=== PATIENT | female | born 1955 | race American Indian/Alaskan Native ===

== ENCOUNTER 2018-02-01 18:21 | Inpatient (IN) | payer OTHER ==
[2018-02-01] MEDS ORDERED: ASPIRIN PO ONE (19:19)
[2018-02-01 20:25] LABS: Basophils % (Auto) 0.7 % (0.0-1.8); Eosinophils # (Auto) 0.1 K/mm3 (0.0-0.4); Eosinophils % (Auto) 0.9 % (0.0-4.3); Hematocrit 38.9 % (30.3-42.9); Hemoglobin 12.7 gm/dl (10.1-14.3); Lymphocytes # (Auto) 1.3 K/mm3 (1.2-5.4); Lymphocytes % (Auto) 18.1 % (13.4-35.0); Mean Corpuscular HGB Conc 33 % (30-34); Mean Corpuscular Hemoglobin 30 pg (28-32); Mean Corpuscular Volume 92 fl (79-97); Monocytes # (Auto) 0.4 K/mm3 (0.0-0.8); Monocytes % (Auto) 4.8 % (0.0-7.3); Platelet Count 234 K/mm3 (140-440); Red Blood Count 4.21 M/mm3 (3.65-5.03); Red Cell Distribution Width 13.8 % (13.2-15.2)
[2018-02-01 20:36] LABS: BUN/Creatinine Ratio 18; Blood Urea Nitrogen 16 mg/dL (7-17); Hemolysis Index 60
[2018-02-01] MEDS ORDERED: NACL 0.9% 1000 ML 1,000 ML ONE (21:10)
[2018-02-01] MEDS ORDERED: NACL 0.9% 500 ML 500 ML IV ONE (21:34)
[2018-02-01 22:03] LABS: INR 1.08 (0.87-1.13)
[2018-02-01 22:04] LABS: Partial Thromboplastin Time 30.7 Sec. (24.2-36.6)
--- NOTE | 2018-02-01 22:29 | Emergency Department Report ---
ED Neuro Deficit HPI - General Chief Complaint: Extremity Injury, Upper Stated Complaint: NV/DIZZINESS Time Seen by Provider: 02/01/18 21:22 Source: patient, EMS (ems notes not available at time of chart dictation), RN notes reviewed Mode of arrival: Stretcher Limitations: Physical Limitation - History of Present Illness Initial Comments: This is a 62-year-old female, unknown to this provider previously, reports a past history of hypertension, and incarcerated hernia repair in 2017. She does not have a local primary care doctor. She presents to the ER with multiple complaints. Her first complaint is nontraumatic left-sided shoulder and scapular p Ain.started yesterday. It was achy in nature. It did not radiate anywhere. It had no exacerbating or relieving factors, is now currently resolved. She is very concerned about it because she reports that both of her parents had "massive myocardial infarctions " and reports that that was her only presenting symptom, along with dizziness. She also describes a sensation of unsteady gait which started at 11:00 today. It is constant, and associated with mild occipital headache, which is not sudden or thunderclap in nature, and did not reach maximal intensity within an hour. She has no chest pain, no shortness of breath and also feels like she is going to "pass out." She denies DVT, pulmonary embolus risk factors. She denies leg pain, leg swelling and oral contraceptives. She indicates that when she opens her eyes she feels like she is going to pass out. -: Sudden Location: ataxia Presenting Symptoms: Absent: Weak/Paralyzed One Side, Sudden, Severe Headache, Blurred/Loss of Vision, Facial Droop/Numbness, Unable to Speak Clearly, Altered Mental Status History of same: Yes Place: work Severity: moderate Quality: constant Improves With: rest Worsens With: other (movement) On Anticoagulants: No Context: gradual onset Associated Symptoms: headaches, loss of appetite, nausea/vomiting, weakness. denies: confusion, chest pain, cough, diaphoresis, fever/chills, vertigo, seizures, shortness of breath, syncope - Related Data Allergies/Adverse Reactions: Allergies Allergy/AdvReac Type Severity Reaction Status Date / Time Sulfa (Sulfonamide Allergy Hives Verified 02/01/18 19:19 Antibiotics) ED Review of Systems ROS: Stated complaint: NV/DIZZINESS Other details as noted in HPI Comment: All other systems reviewed and negative ED Past Medical Hx - Past Medical History Hx Hypertension: Yes - Surgical History Hx Appendectomy: Yes (1971) Additional Surgical History: , Incarciated hernia 2016 - Social History Smoking Status: Never Smoker Substance Use Type: None ED Neuro Physical Exam - General Limitations: Physical Limitation General appearance: alert, in no apparent distress Suspected Stroke: Yes - Head Head exam: Present: atraumatic, normocephalic - Eye Eye exam: Present: normal appearance, PERRL, EOMI, other (visual acuity intact to finger counting, color perception, reading at a close distance). Absent: nystagmus - ENT ENT exam: Present: normal exam, normal orophraynx, mucous membranes moist, normal external ear exam - Neck Neck exam: Present: normal inspection, full ROM. Absent: tenderness, meningismus - Respiratory Respiratory exam: Present: normal lung sounds bilaterally. Absent: respiratory distress - Cardiovascular Cardiovascular Exam: Present: normal rhythm, bradycardia, normal heart sounds. Absent: systolic murmur, diastolic murmur, rubs, gallop - GI/Abdominal GI/Abdominal exam: Present: soft, normal bowel sounds. Absent: distended, tenderness, guarding, rebound, rigid, pulsatile mass - Extremities Exam Extremities exam: Present: normal inspection, full ROM, normal capillary refill. Absent: pedal edema, joint swelling, calf tenderness - Back Exam Back exam: Present: normal inspection, full ROM. Absent: tenderness, CVA tenderness (R), paraspinal tenderness, vertebral tenderness - Neurological Exam Neurological exam: Present: alert, oriented X3, CN II-XII intact, other ( Extraocular movements intact. Tongue midline. No facial droop. Facial sensation intact to light touch in the V1, V2, V3 distribution bilaterally. 5 and 5 strength in 4 extremities.. Sensation is intact to light touch in 4 extremities.). Absent: motor sensory deficit - NIHSS Assessment Interval: Baseline 1a. Level of Consciousness: alert 1b. LOC Questions: answers correctly 1c. LOC Commands: performs tasks correctly 2. Best Gaze: normal 3. Visual: no visual loss 4. Facial Palsy: normal symmetrical movement 5b. Motor Arm Right: no drift 5a. Motor Arm Left: no drift 6a. Motor Leg Left: no drift 6b. Motor Leg Right: no drift 7. Limb Ataxia: absent 8. Sensory: normal 9. Best Language: no aphasia 10. Dysarthria: normal 11. Extinction/Inattention: no abnormality Total Score: 0 Stroke Severity: No Stroke Symptoms - Psychiatric Psychiatric exam: Present: anxious - Skin Skin exam: Present: warm, dry, intact, normal color. Absent: rash ED Course Vital Signs 02/01/18 02/01/18 02/01/18 19:08 20:01 20:23 Temperature 97.5 F L 97.8 F Pulse Rate 59 L 79 72 Respiratory 12 16 Rate Blood Pressure 146/84 136/70 Blood Pressure 136/70 [Right] O2 Sat by Pulse 98 98 98 Oximetry 02/01/18 02/02/18 02/02/18 22:00 00:04 01:01 Temperature Pulse Rate 83 Respiratory 16 13 Rate Blood Pressure 144/61 138/66 138/66 Blood Pressure [Right] O2 Sat by Pulse 98 97 97 Oximetry - Reevaluation(s) Reevaluation #1: 02/01/18 22:33 Differential diagnosis, including not limited to: Arrhythmia, structural cardiac disease, acute coronary syndrome, posterior circulation stroke, carotid dissection, peripheral vertigo, electrolyte derangement, symptomatic bradycardia Assessment and plan: 62-year-old female complaining of dizziness, nontraumatic left-sided shoulder pain, and unsteady gait. The patient presented more than 4.5 hours after symptom onset, and has an NIH score of 0. The patient is therefore not a TPA candidate. We will obtain a CT scan of the head, and CT angiogram of the head and neck. We will reassess. Plan to admit. Her symptoms will be treated as well. Reevaluation #2: 02/01/18 23:28 x-ray of the chest is negative for acute disease. CT scan interpretation is pending Reevaluation #3: 02/02/18 01:59 CT scan of the brain is negative. CT angiogram of head and neck does not demonstrate any significant disease. The case is presented to the Hospital physician, Dr. Carpenter, see accepted the patient the medical service. - Lab Data Result diagrams: 02/01/18 20:06 02/01/18 20:06 Lab Results 02/01/18 02/01/18 02/01/18 Range/Units 00:12 20:06 20:06 WBC 7.4 (4.5-11.0) K/mm3 RBC 4.21 (3.65-5.03) M/mm3 Hgb 12.7 (10.1-14.3) gm/dl Hct 38.9 (30.3-42.9) % MCV 92 (79-97) fl MCH 30 (28-32) pg MCHC 33 (30-34) % RDW 13.8 (13.2-15.2) % Plt Count 234 (140-440) K/mm3 Lymph % (Auto) 18.1 (13.4-35.0) % [place] % (Auto) 4.8 (0.0-7.3) % Eos % (Auto) 0.9 (0.0-4.3) % Baso % (Auto) 0.7 (0.0-1.8) % Lymph # 1.3 (1.2-5.4) K/mm3 [place] # 0.4 (0.0-0.8) K/mm3 Eos # 0.1 (0.0-0.4) K/mm3 Baso # 0.0 (0.0-0.1) K/mm3 Seg Neutrophils % 75.5 H (40.0-70.0) % Seg Neutrophils # 5.6 (1.8-7.7) K/mm3 PT (12.2-14.9) Sec. INR (0.87-1.13) APTT (24.2-36.6) Sec. Sodium 137 (137-145) mmol/L Potassium 4.2 (3.6-5.0) mmol/L Chloride 101.7 (98-107) mmol/L Carbon Dioxide 24 (22-30) mmol/L Anion Gap 16 mmol/L BUN 16 (7-17) mg/dL Creatinine 0.9 (0.7-1.2) mg/dL Estimated GFR > 60 ml/min BUN/Creatinine Ratio 18 % Glucose 115 H (65-100) mg/dL Calcium 9.0 (8.4-10.2) mg/dL Troponin T < 0.010 < 0.010 (0.00-0.029) ng/mL Urine Color (Yellow) Urine Turbidity (Clear) Urine pH (5.0-7.0) Ur Specific [place] (1.003-1.030) Urine Protein (Negative) mg/dL Urine Glucose (UA) (Negative) mg/dL Urine Ketones (Negative) mg/dL Urine Blood (Negative) Urine Nitrite (Negative) Urine Bilirubin (Negative) Urine Urobilinogen (<2.0) mg/dL Ur Leukocyte Esterase (Negative) Urine WBC (Auto) (0.0-6.0) /HPF Urine RBC (Auto) (0.0-6.0) /HPF U Epithel Cells (Auto) (0-13.0) /HPF Urine Bacteria (Auto) (Negative) /HPF Hyaline Casts /LPF Urine Mucus /HPF Urine Opiates Screen Urine Methadone Screen Ur Barbiturates Screen Ur Phencyclidine Scrn Ur Amphetamines Screen U Benzodiazepines Scrn Urine Cocaine Screen U Marijuana (THC) Screen Drugs of Abuse Note 02/01/18 02/01/18 02/01/18 Range/Units 21:42 23:00 23:00 WBC (4.5-11.0) K/mm3 RBC (3.65-5.03) M/mm3 Hgb (10.1-14.3) gm/dl Hct (30.3-42.9) % MCV (79-97) fl MCH (28-32) pg MCHC (30-34) % RDW (13.2-15.2) % Plt Count (140-440) K/mm3 Lymph % (Auto) (13.4-35.0) % [place] % (Auto) (0.0-7.3) % Eos % (Auto) (0.0-4.3) % Baso % (Auto) (0.0-1.8) % Lymph # (1.2-5.4) K/mm3 [place] # (0.0-0.8) K/mm3 Eos # (0.0-0.4) K/mm3 Baso # (0.0-0.1) K/mm3 Seg Neutrophils % (40.0-70.0) % Seg Neutrophils # (1.8-7.7) K/mm3 PT 14.6 (12.2-14.9) Sec. INR 1.08 (0.87-1.13) APTT 30.7 (24.2-36.6) Sec. Sodium (137-145) mmol/L Potassium (3.6-5.0) mmol/L Chloride (98-107) mmol/L Carbon Dioxide (22-30) mmol/L Anion Gap mmol/L BUN (7-17) mg/dL Creatinine (0.7-1.2) mg/dL Estimated GFR ml/min BUN/Creatinine Ratio % Glucose (65-100) mg/dL Calcium (8.4-10.2) mg/dL Troponin T (0.00-0.029) ng/mL Urine Color Yellow (Yellow) Urine Turbidity Clear (Clear) Urine pH 5.0 (5.0-7.0) Ur Specific [place] 1.015 (1.003-1.030) Urine Protein <15 mg/dl (Negative) mg/dL Urine Glucose (UA) Neg (Negative) mg/dL Urine Ketones Neg (Negative) mg/dL Urine Blood Neg (Negative) Urine Nitrite Neg (Negative) Urine Bilirubin Neg (Negative) Urine Urobilinogen < 2.0 (<2.0) mg/dL Ur Leukocyte Esterase Tr (Negative) Urine WBC (Auto) 6.0 (0.0-6.0) /HPF Urine RBC (Auto) 3.0 (0.0-6.0) /HPF U Epithel Cells (Auto) 3.0 (0-13.0) /HPF Urine Bacteria (Auto) 1+ (Negative) /HPF Hyaline Casts 1 /LPF Urine Mucus Few /HPF Urine Opiates Screen Presumptive negative Urine Methadone Screen Presumptive negative Ur Barbiturates Screen Presumptive negative Ur Phencyclidine Scrn Presumptive negative Ur Amphetamines Screen Presumptive negative U Benzodiazepines Scrn Presumptive negative Urine Cocaine Screen Presumptive negative U Marijuana (THC) Screen Presumptive negative Drugs of Abuse Note Disclamer - EKG Data -: EKG Interpreted by Nd EKG shows normal: sinus rhythm Rate: bradycardia When compared to previous EKG there are: previous EKG unavailable 02/01/18 22:35 Bradycardia, motion artifact, normal axis, abnormal EKG, not a STEMI. Sinus rhythm. - Radiology Data Radiology results: pending - Core Measures Measure Exclusions: not indicated - Thrombolytic Inclusion/Exclusion Thrombolytic Exclusion Criteria: Symptom Onset > 3 Hours Critical care attestation.: If time is entered above; I have spent that time in minutes in the direct care of this critically ill patient, excluding procedure time. ED Disposition Clinical Impression: Near syncope, History of unsteady gait Disposition: OP ADMIT IP TO THIS HOSP Is pt being admited?: Yes Does the pt Need Aspirin: Yes Condition: Good Referrals: PRIMARY CARE,MD [Primary Care Provider] - 3-5 Days
[2018-02-01 23:17] LABS: Bacteria,Urine 1+ /HPF (Negative); Bilirubin,Urine NEG (Negative); Blood,Urine NEG (Negative); Color,Urine Yellow (Yellow); Hyaline Casts,Urine 1 /LPF; Mucus,Urine FEW /HPF; Protein,Urine <15 mg/dL mg/dL (Negative); Urobilinogen,Urine < 2.0 mg/dL (<2.0)
--- NOTE | 2018-02-01 23:23 | XRay Report ---
FINAL REPORT EXAM: XR CHEST 1V AP HISTORY: back pain dizzy TECHNIQUE: Single AP view of the chest PRIORS: None. FINDINGS: Cardiac silhouette is enlarged.. No focal pulmonary infiltrate identified. No pleural fluid collection seen. The pulmonary vasculature is unremarkable. IMPRESSION: Cardiomegaly No acute pulmonary findings
[2018-02-01 23:24] LABS: Amphetamine Screen,Urine PRESUMPTIVE NEGATIVE; Benzodiazepines Screen,Urine PRESUMPTIVE NEGATIVE; Cannabinoid Screen,Urine PRESUMPTIVE NEGATIVE; Cocaine Screen,Urine PRESUMPTIVE NEGATIVE; Methadone Screen,Urine PRESUMPTIVE NEGATIVE; Opiate Screen,Urine PRESUMPTIVE NEGATIVE
--- NOTE | 2018-02-02 00:37 | Cat Scan Report ---
FINAL REPORT EXAM: CT ANGIO HEAD HISTORY: stroke sx DIZZINESS TECHNIQUE: Noncontrast head CT followed by CT angiography of the head with 100 cc of Omnipaque 350 contrast intravenously. Axial thin-section images with sagittal and coronal reconstructions. 3D renderings also obtained. PRIORS: None. FINDINGS: The bilateral internal carotid arteries appear normal and patent. The bilateral anterior and middle cerebral arteries and the [place] appear normal. The vertebrobasilar appears normal. The bilateral posterior cerebral arteries appear normal. No aneurysms or significant stenoses are demonstrated. IMPRESSION: Normal CT angiogram of the head
--- NOTE | 2018-02-02 00:39 | Cat Scan Report ---
FINAL REPORT EXAM: CT HEAD/BRAIN WO CON HISTORY: Stroke symptoms TECHNIQUE: CT was performed from the foramen magnum through the vertex in the axial plane without the use of intravenous contrast. PRIORS: None. FINDINGS: The [place]/white matter attenuation pattern is normal. There is no mass lesion or mass effect. There are no abnormal extra-axial fluid collections. There is no evidence of acute intracranial hemorrhage or infarct. The ventricles are of normal size and configuration. The skull and orbits are unremarkable. The visualized paranasal sinuses are clear. IMPRESSION: Normal CT of the head.
--- NOTE | 2018-02-02 01:27 | Cat Scan Report ---
FINAL REPORT EXAM: CT ANGIO NECK HISTORY: stroke sx COMPARISON: None available. TECHNIQUE: Contiguous axial images were obtained. Additional sagittal and coronal reformatted images were obtained. Administration of IV contrast given per institution protocol. Images submitted for interpretation. FINDINGS: Mild calcified plaque at the carotid bifurcations bilaterally. No significant associated stenosis by NASCET criteria. Otherwise, extracranial portions of the common carotid, internal carotid, and vertebral arteries are patent. Left vertebral artery is dominant. Upper airway is patent. True vocal cords are symmetric. Salivary glands and thyroid gland are grossly unremarkable. Mild atelectasis at the lung apices. Moderate focal degenerative changes at the C5-C6 level. Small retention cysts or polyps at the floors of the maxillary sinuses. IMPRESSION: Mild calcified plaque at the carotid bifurcations bilaterally. No associated stenosis by NASCET criteria. Otherwise, negative CTA of the neck. The
[2018-02-02] MEDS ORDERED: ASPIRIN ONE (01:56)
--- NOTE | 2018-02-02 02:42 | History and Physical Report ---
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 She stated that this started after she had a bout of sepsis in June. Dizzinesss is provoked by loud noises and bright light and usually lasts for 5 minutes. Also complain of arms and legs getting weaker and left shoulder pain, achy, no radiation Review of systems Constitutional: no weight loss, chills Ears, eyes, nose, mouth and throat: no nasal congestion, no nasal discharge, no sinus pressure, no vision change, no red eye. Neck: No neck pain or rigidity. Cardiovascular: no chest pain, palpitation Respiratory: No cough, shortness of breath Gastrointestinal: no abdominal pain, hematochezia Genitourinary : no dysuria, frequency , no hematuria Musculoskeletal: no joint swelling or muscle ache Integumentary: no rash, no pruritis Neurological: no parathesias, no numbness, no focal weakness Endocrine: no cold or heat intolerance, no polyuria or polydipsia Hematologic/Lymphatic: no easy bruising, no easy bleeding, no gland swelling Allergic/Immunologic: no urticaria, no angioedema. PAST MEDICAL HISTORY: hypertension PAST SURGICAL HISTORY: c/section, hernia repair, appendectomy SOCIAL HISTORY: Denies tobacco, alcohol, drugs FAMILY HISTORY: Hypertension, diabetes Medications and Allergies Allergies Allergy/AdvReac Type Severity Reaction Status Date / Time Sulfa (Sulfonamide Allergy Hives Verified 02/01/18 19:19 Antibiotics) Home Medications Medication Instructions Recorded Confirmed Last Taken Type Hydrochlorothiazide [HCTZ] 25 mg PO QDAY 02/02/18 02/02/18 Unknown History Lisinopril [Zestril TAB] 10 mg PO QDAY 02/02/18 02/02/18 Unknown History Exam - Physical Exam Narrative exam: Gen. appearance: Patient lying in bed, no apparent distress HEENT: Normocephalic, atraumatic, pupils equally round and reactive to light, extraocular movement intact, and no sclericterus,. No JVD or thyromegaly or nodule,neck supple, no carotid bruit ,mucous membranes dry, no exudate or erythema Heart: S1, S2, regular rate and rhythm Lungs: Clears bilaterally, breathing comfortable Abdomen: Positive bowel sounds, nontender, nondistended, no organomegaly Extremity:no edema cyanosis, clubbing Neuro: Oriented 3, cranial nerves II-12 intact, speech is fluent, motor poor effort - Constitutional Vitals: Temp Pulse Resp BP Pulse Ox 97.8 F 83 13 138/66 97 02/01/18 20:23 02/02/18 01:01 02/02/18 01:01 02/02/18 01:01 02/02/18 01:01 Results - Labs CBC & Chem 7: 02/01/18 20:06 02/01/18 20:06 Labs: Abnormal lab results 02/01/18 02/01/18 Range/Units 20:06 20:06 Seg Neutrophils % 75.5 H (40.0-70.0) % Glucose 115 H (65-100) mg/dL Assessment and Plan Assessment Dizziness Hypertension Plam Admit to medicine Start meclizine, consult neurology check cardiac nzymes DVT prophalaxis
[2018-02-02] MEDS ORDERED: ZOFRAN IV PRN (03:13)
[2018-02-02] MEDS ORDERED: TYLENOL PO PRN (03:13)
[2018-02-02] MEDS ORDERED: SODIUM CHLORIDE FLUSH SYRINGE 10 ML IV PRN (03:13)
[2018-02-02] MEDS ORDERED: ANTIVERT PO PRN (04:36)
[2018-02-02] MEDS ORDERED: NACL 0.9% 1000 ML 1,000 ML IV SCH (09:00)
[2018-02-02 09:01] LABS: Creatine Kinase MB 1.5 ng/mL (0.0-4.0)
[2018-02-02] MEDS ORDERED: ZESTRIL PO SCH ×2 (10:00→22:00)
[2018-02-02] MEDS ORDERED: LOVENOX SUB-Q SCH (10:00)
[2018-02-02] MEDS: HCTZ PO SCH (10:44)
[2018-02-02] MEDS: ASPIRIN PO SCH (10:44)
[2018-02-02] MEDS: SODIUM CHLORIDE FLUSH SYRINGE 10 ML IV SCH ×2 (10:44→22:00)
[2018-02-02] MEDS: LOVENOX SUB-Q SCH (10:44)
--- NOTE | 2018-02-02 12:24 | Consultation ---
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 It can be triggered even daily by exposure to visual stimuli such as scrolling pages on computer or smart phone, moving images on her television, loud noises, bright lights etc. She cannot drive on a highway due to too much visual stimulation. She had a CT scan she says back in February that was negative but has never seen an ENT specialist or had an MRI. She states when she gets lightheaded she tends to fall to the left. She does not have vertigo. Symptoms began about a month after hospitalization for sepsis from eating contaminated soup she thinks, contaminated by a coworker. She had severe pain in the legs in 2014 but after antibiotics for the sepsis in November 2016, leg pain resolved. Dizziness subsides if she gets rid of the triggers. She has noted that it helps to receive IV hydration and she tries to drink 6 bottles of water per day at home. Vision is out of focus though not exactly blurred. Yesterday she began having dizziness at noon and it lasted longer than usual to 3 PM and when she sat up she vomited so she ended up being brought to the hospital. She says her pulse now is low at 56 whereas it usually is 96-104. Usually her blood pressures 130/84 and is lower here. Given some IV fluids previously ordered. At some dull ache in the left shoulder joint starting the day before the other symptoms. He had weakness of the arms and legs ever since November or January of last year without shortness of breath but with "no energy". Dizziness has been more frequent since approximately August of this year. She gets a dull frontal discomfort with some photophobia but doesn't feel it is enough to call it a headache and usually without nausea. CT scan shows mild to moderate cerebral atrophy. 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 denies: smoking, alcohol abuse, prescription drug abuse, IV drug use (never illicit drugs) Medications and Allergies Allergies Allergy/AdvReac Type Severity Reaction Status Date / Time Sulfa (Sulfonamide Allergy Hives Verified 02/01/18 19:19 Antibiotics) Home Medications Medication Instructions Recorded Confirmed Last Taken Type Hydrochlorothiazide [HCTZ] 25 mg PO QDAY 02/02/18 02/02/18 Unknown History Lisinopril [Zestril TAB] 10 mg PO QDAY 02/02/18 02/02/18 Unknown History Active Meds: Active Medications Acetaminophen (Tylenol) 650 mg PO Q4H PRN PRN Reason: Pain MILD(1-3)/Fever >100.5/HERNÁNDEZ Last Admin: 02/02/18 07:50 Dose: 650 mg Aspirin (Aspirin) 325 mg PO QDAY [facility] Last Admin: 02/02/18 10:44 Dose: 325 mg Enoxaparin Sodium (Lovenox) 40 mg SUB-Q QDAY@1000 [facility] Last Admin: 02/02/18 10:44 Dose: 40 mg Hydrochlorothiazide (Hctz) 25 mg PO QDAY [facility] Last Admin: 02/02/18 10:44 Dose: Not Given Sodium Chloride (Nacl 0.9% 1000 Ml) 1,000 mls @ 125 mls/hr IV DIRECT SHANTANU Stop: 02/02/18 16:59 Last Admin: 02/02/18 09:07 Dose: 125 mls/hr Lisinopril (Zestril) 10 mg PO QHS SHANTANU Meclizine HCl (Antivert) 25 mg PO Q6H PRN PRN Reason: Vertigo Ondansetron HCl (Zofran) 4 mg IV Q8H PRN PRN Reason: Nausea And Vomiting Sodium Chloride (Sodium Chloride Flush Syringe 10 Ml) 10 ml IV BID [facility] Last Admin: 02/02/18 10:44 Dose: 10 ml Sodium Chloride (Sodium Chloride Flush Syringe 10 Ml) 10 ml IV PRN PRN PRN Reason: LINE FLUSH Review of Systems All systems: negative (dull frontal discomfort less than a headache, without nausea but with some photophobia. No chest pain. Not aware of any snoring. Not sleepy during the day or when driving, gets 6-7 hours sleep and feels rested. 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 HEENT: atraumatic, normocephalic; no bruits, 2+ Geo without soreness or induration or enlargement, sclerae nonicteric. Oropharynx pink and moist. Neck: supple, no bruits. Heart: no murmur or extra sounds. Extremities: no clubbing or cyanosis but trace edema on the left. 1+ left posterior tibial and 2+ right dorsalis pedis pulses. Neurologic Exam: Mental Status: Awake, alert, oriented to tense instead of 14 and thinks it is Tuesday but knows the year, speech is clear, names pen and point of pen, and abstracts well. Names President but calls the Metal Painter Penson instead of Matteson, serial 7's intact, no right-left confusion, gets 1 of 3 objects at 3 minutes, spells WORLD backwards correctly. Cranial Nerves: gatica full, no papilledema, SVPs present, PERRLA but small pupils, EOMs full without nystagmus or diplopia, facial sensation intact to pinprick and light touch, no facial weakness, Sweeney is midline, palate rises symmetrically to phonation and gags are positive, shoulder shrug is 5 X 2, tongue protrudes midline. Cerebellar: finger to nose is slightly dysmetric on the left without tremor, heel to humphreys is normal bilaterally. Sensory: intact to light touch, pinprick, and vibrations. Double simultaneous stimulation is intact. Motor Exam Upper Extremities: no drift or pronation, Gerardo intact. Bleach Mixer are 5 X 2, tone is normal. No atrophy or fasciculations are noted visually. Motor Exam Lower Extremities: Moderate left leg lag, iliopsoas is 5 left and 4 right without pain, quadriceps show give way at 4 laterally without pain, anterior tibials are 5, gastrocnemius are 5 left and 4+ right without pain. Gerardo intact. Tone is normal. No atrophy or fasciculations are noted visually. Reflexes: Palmomental, snout and jaw jerk are negative. Triceps are 0 calming trace bilaterally with reinforcement, biceps are trace to 1 and brachioradialis are trace bilaterally. Vonda's is negative bilaterally. Knee jerks and ankle jerks are 0 bilaterally even with reinforcement and without clonus. Toes are downgoing bilaterally to Babinski testing. - Assessment Assessment Interval: Baseline - Level of Consciousness 1a. Level of Consciousness: alert - LOC Questions 1b. LOC Questions: answers correctly - LOC Command 1c. LOC Commands: performs tasks correctly - Best Gaze 2. Best Gaze: normal - Visual 3. Visual: no visual loss - Facial Palsy 4. Facial Palsy: normal symmetrical movement - Motor Arm 5b. Motor Arm Right: no drift - Motor Leg 6a. Motor Leg Left: no drift - Limb Ataxia 7. Limb Ataxia: absent - Sensory 8. Sensory: normal - Best Language 9. Best Language: no aphasia - Dysarthria 10. Dysarthria: normal - Extinction and Inattention 11. Extinction/Inattention: no abnormality Results - Laboratory Findings CBC and BMP: 02/01/18 20:06 02/01/18 20:06 Abnormal Lab Findings: Abnormal Labs 02/01/18 02/01/18 20:06 20:06 Seg Neutrophils % 75.5 H Glucose 115 H Assessment and Plan Impression: 1. Dizziness 2. Memory loss 3. Muscle weakness Plan: 1. Echocardiogram with bubbles, to see if cardiomyopathy. 2. MRI brain noncontrast. 3. Muscle enzymes, myasthenia panel, MuSK antibody, striated muscle antibody. 4. IV hydration then perhaps will be able to check orthostatics (unable to managed care coordinator ER when attempted). 5. Memory labs. 6. Move lisinopril to bedtime or her time for sleep, to avoid orthostasis from taking the HCTZ and lisinopril at the same time (explained to her). 7. Consider IVIG for possible CIDP but presentation does not fit well. 45 minutes spent including extensive muscle testing. Thank you for an interesting consultation on this pleasant early 60s lady.
--- NOTE | 2018-02-02 13:05 | Magnetic Resonance Report ---
MRI BRAIN WITHOUT CONTRAST: 02/02/18 03:13:00 CLINICAL: Dizziness and weakness of four limbs. TECHNIQUE: Axial diffusion, T1, T2, gradient echo T2*, coronal and axial FLAIR, and sagittal T1 sequences on a 1.5 Rachel magnet. FINDINGS: The ventricles and sulci are slightly large for age. No restricted diffusion. Mild bilateral multifocal white matter hyperintensities on FLAIR and T2. No mass or mass effect. No hemorrhage, edema or extra-axial collection. Normal pituitary and optic chiasm. The brainstem and cerebellum are normal. Intact vascular flow voids. Mild bilateral ethmoid sinusitis. The rest of the sinuses are clear. The orbits, and soft tissues are normal. Normal calvarium and skull base. IMPRESSION: 1. No evidence of acute/subacute infarct or hemorrhage. 2. Mild global cortical atrophy. 3. Mild bilateral chronic white matter microangiopathy. 4. Mild ethmoid sinusitis.
[2018-02-03 06:26] LABS: Basophils % (Auto) 0.3 % (0.0-1.8); Eosinophils # (Auto) 0.1 K/mm3 (0.0-0.4); Hematocrit 35.5 % (30.3-42.9); Hemoglobin 11.6 gm/dl (10.1-14.3); Lymphocytes # (Auto) 2.2 K/mm3 (1.2-5.4); Lymphocytes % (Auto) 35.2 % (13.4-35.0); Mean Corpuscular HGB Conc 33 % (30-34); Mean Corpuscular Hemoglobin 30 pg (28-32); Mean Corpuscular Volume 92 fl (79-97); Monocytes # (Auto) 0.6 K/mm3 (0.0-0.8); Monocytes % (Auto) 9.1 % (0.0-7.3); Platelet Count 215 K/mm3 (140-440); Red Blood Count 3.87 M/mm3 (3.65-5.03); Red Cell Distribution Width 13.8 % (13.2-15.2)
[2018-02-03 06:53] LABS: BUN/Creatinine Ratio 16; Blood Urea Nitrogen 18 mg/dL (7-17); Calcium 8.5 mg/dL (8.4-10.2); Hemolysis Index 2
--- NOTE | 2018-02-03 12:07 | Progress Note ---
Assessment and Plan Assessment and plan: --Dizziness; fall precautions Physical therapy and occupational therapy, review medications Meclizine as needed If no improvement, patient may need to see ENT as outpatient Workup; CT head; normal study CTA head; normal CTA neck; mild calcified plaque at the carotid bifurcation bilaterally MRI brain; no evidence of acute subacute infarct or hemorrhage, mild to moderate sinusitis Echocardiogram; left ventricular ejection fraction 55-60%, mild concentric LVH --Hypertension; continue current antihypertensives Mild orthostatic changes, and his lisinopril and add metoprolol Closely monitor ----Mild ethmoidal sinusitis on CT head; Add amoxicillin, supportive care --DVT prophylaxis; Lovenox --Morbid obesity; BMI 49.4 Counseling, dietary modification and exercise as tolerated and weight reduction When medically stable Consults and recommendations noted and appreciated Physical therapy occupational therapy, possible home health home PT at discharge Plan of care is reviewed with the patient and her nurse History Interval history: Patient seen and examined medical records reviewed Admitted with dizziness, neuro workup is in progress No new episodes of dizziness or near syncope Alert awake oriented 3 vital signs reviewed Hospitalist Physical - Constitutional Vitals: Temp Pulse Resp BP Pulse Ox 98.2 F 83 18 133/68 96 02/03/18 07:29 02/03/18 07:29 02/03/18 07:29 02/03/18 07:29 02/03/18 07:29 General appearance: Present: no acute distress, well-nourished - EENT Eyes: Present: PERRL, EOM intact - Neck Neck: Present: supple, normal ROM - Respiratory Respiratory effort: normal Respiratory: bilateral: diminished, negative: rales, rhonchi, wheezing - Cardiovascular Rhythm: regular Heart Sounds: Present: S1 & S2 - Extremities Extremities: no ischemia, No edema - Abdominal General gastrointestinal: soft, non-tender, non-distended, normal bowel sounds - Integumentary Integumentary: Present: clear, warm - Psychiatric Psychiatric: appropriate mood/affect, cooperative - Neurologic Neurologic: CNII-XII intact, moves all extremities Results - Labs CBC & Chem 7: 02/03/18 05:34 02/03/18 05:34 Labs: Laboratory Last Values WBC 6.1 K/mm3 (4.5-11.0) 02/03/18 05:34 RBC 3.87 M/mm3 (3.65-5.03) 02/03/18 05:34 Hgb 11.6 gm/dl (10.1-14.3) 02/03/18 05:34 Hct 35.5 % (30.3-42.9) 02/03/18 05:34 MCV 92 fl (79-97) 02/03/18 05:34 MCH 30 pg (28-32) 02/03/18 05:34 MCHC 33 % (30-34) 02/03/18 05:34 RDW 13.8 % (13.2-15.2) 02/03/18 05:34 Plt Count 215 K/mm3 (140-440) 02/03/18 05:34 Lymph % (Auto) 35.2 % (13.4-35.0) H 02/03/18 05:34 [place] % (Auto) 9.1 % (0.0-7.3) H 02/03/18 05:34 Eos % (Auto) 2.0 % (0.0-4.3) 02/03/18 05:34 Baso % (Auto) 0.3 % (0.0-1.8) 02/03/18 05:34 Lymph # 2.2 K/mm3 (1.2-5.4) 02/03/18 05:34 [place] # 0.6 K/mm3 (0.0-0.8) 02/03/18 05:34 Eos # 0.1 K/mm3 (0.0-0.4) 02/03/18 05:34 Baso # 0.0 K/mm3 (0.0-0.1) 02/03/18 05:34 Seg Neutrophils % 53.4 % (40.0-70.0) 02/03/18 05:34 Seg Neutrophils # 3.3 K/mm3 (1.8-7.7) 02/03/18 05:34 PT 14.6 Sec. (12.2-14.9) 02/01/18 21:42 INR 1.08 (0.87-1.13) 02/01/18 21:42 APTT 30.7 Sec. (24.2-36.6) 02/01/18 21:42 Sodium 142 mmol/L (137-145) 02/03/18 05:34 Potassium 4.0 mmol/L (3.6-5.0) 02/03/18 05:34 Chloride 105.0 mmol/L (98-107) 02/03/18 05:34 Carbon Dioxide 24 mmol/L (22-30) 02/03/18 05:34 Anion Gap 17 mmol/L 02/03/18 05:34 BUN 18 mg/dL (7-17) H 02/03/18 05:34 Creatinine 1.1 mg/dL (0.7-1.2) 02/03/18 05:34 Estimated GFR > 60 ml/min 02/03/18 05:34 BUN/Creatinine Ratio 16 % 02/03/18 05:34 Glucose 93 mg/dL (65-100) 02/03/18 05:34 Lactic Acid 0.60 mmol/L (0.7-2.0) L 02/02/18 14:23 Calcium 8.5 mg/dL (8.4-10.2) 02/03/18 05:34 Total Creatine Kinase 103 units/L (30-135) 02/02/18 14:23 CK-MB (CK-2) 1.5 ng/mL (0.0-4.0) 02/02/18 08:30 CK-MB (CK-2) Rel Index 1.5 (0-4) 02/02/18 08:30 Troponin T < 0.010 ng/mL (0.00-0.029) 02/02/18 08:30 Vitamin B12 1174 pg/mL (211-911) H 02/02/18 14:23 Folate 11.33 ng/mL (7.3-26.0) 02/02/18 14:23 TSH 0.610 mlU/mL (0.270-4.200) 02/02/18 14:23 Free T4 1.08 ng/dL (0.76-1.46) 02/02/18 14:23 Urine Color Yellow (Yellow) 02/01/18 23:00 Urine Turbidity Clear (Clear) 02/01/18 23:00 Urine pH 5.0 (5.0-7.0) 02/01/18 23:00 Ur Specific [place] 1.015 (1.003-1.030) 02/01/18 23:00 Urine Protein <15 mg/dl mg/dL (Negative) 02/01/18 23:00 Urine Glucose (UA) Neg mg/dL (Negative) 02/01/18 23:00 Urine Ketones Neg mg/dL (Negative) 02/01/18 23:00 Urine Blood Neg (Negative) 02/01/18 23:00 Urine Nitrite Neg (Negative) 02/01/18 23:00 Urine Bilirubin Neg (Negative) 02/01/18 23:00 Urine Urobilinogen < 2.0 mg/dL (<2.0) 02/01/18 23:00 Ur Leukocyte Esterase Tr (Negative) 02/01/18 23:00 Urine WBC (Auto) 6.0 /HPF (0.0-6.0) 02/01/18 23:00 Urine RBC (Auto) 3.0 /HPF (0.0-6.0) 02/01/18 23:00 U Epithel Cells (Auto) 3.0 /HPF (0-13.0) 02/01/18 23:00 Urine Bacteria (Auto) 1+ /HPF (Negative) 02/01/18 23:00 Hyaline Casts 1 /LPF 02/01/18 23:00 Urine Mucus Few /HPF 02/01/18 23:00 Urine Opiates Screen Presumptive negative 02/01/18 23:00 Urine Methadone Screen Presumptive negative 02/01/18 23:00 Ur Barbiturates Screen Presumptive negative 02/01/18 23:00 Ur Phencyclidine Scrn Presumptive negative 02/01/18 23:00 Ur Amphetamines Screen Presumptive negative 02/01/18 23:00 U Benzodiazepines Scrn Presumptive negative 02/01/18 23:00 Urine Cocaine Screen Presumptive negative 02/01/18 23:00 U Marijuana (THC) Screen Presumptive negative 02/01/18 23:00 Drugs of Abuse Note Disclamer 02/01/18 23:00
[2018-02-03] MEDS: HCTZ PO SCH (15:31)
[2018-02-03] MEDS: LOVENOX SUB-Q SCH (15:31)
[2018-02-03] MEDS: SODIUM CHLORIDE FLUSH SYRINGE 10 ML IV SCH ×2 (15:31→21:43)
[2018-02-03] MEDS: ASPIRIN PO SCH (15:31)
--- NOTE | 2018-02-03 17:33 | Event Note ---
Date: 02/03/18 Orthostatics show elevation of pulse >20 points standing vs sitting or standing but BP went up standing. May need beta sherwin. Echo with bubbles shows minor changes but no embolic source and no cardiomyopathy. Ordered fasting lipids. Dizziness likely from swings in BP and orthostatic pulse changes. Will sign off , call us if further questions.
[2018-02-03] MEDS: AUGMENTIN 875 MG PO SCH (21:42)
[2018-02-03] MEDS: LOPRESSOR PO SCH (21:42)
[2018-02-04 09:43] LABS: Chol/HDL Ratio 2.91 %
[2018-02-04] MEDS: HCTZ PO SCH (10:39)
[2018-02-04] MEDS: AUGMENTIN 875 MG PO SCH (10:40)
[2018-02-04] MEDS: ASPIRIN PO SCH (10:40)
[2018-02-04] MEDS: LOVENOX SUB-Q SCH (10:40)
[2018-02-04] MEDS: LOPRESSOR PO SCH (10:41)
[2018-02-04] MEDS: SODIUM CHLORIDE FLUSH SYRINGE 10 ML IV SCH (10:50)
--- NOTE | 2018-02-04 13:25 | Discharge Summary ---
Providers - Providers Date of Admission: 02/02/18 03:13 Date of discharge: 02/04/18 Attending physician: CHARLETTE HARDWICK 02/02/18 03:13 Consult to Physician [CONS] Routine Comment: called over to [employer] voicemail and placed on list Consulting Provider: LUISITO SMALLWOOD Physician Instructions: Reason For Exam: dizziness Primary care physician: TRAINING PROJECT MANAGER Hospitalization Reason for admission: dizziness/vertigo Condition: Good Pertinent studies: Workup; CT head; normal study CTA head; normal CTA neck; mild calcified plaque at the carotid bifurcation bilaterally MRI brain; no evidence of acute subacute infarct or hemorrhage, mild to moderate sinusitis Echocardiogram; left ventricular ejection fraction 55-60%, mild concentric LVH Hospital course: Very pleasant 62-year-old morbidly obese female patient with significant history of hypertension was admitted through emergency room with dizziness patient was admitted to the hospital had extensive evaluation as mentioned above, patient's orthostatics were checked, blood pressure medications adjusted, Patient was evaluated in neurology, medications were optimized, recommendations followed, Patient also had ethamoid sinusitis, started on antibiotics Received physical therapy occupational therapy, Still had intermittent vertigo, which was relieved by meclizine Today patient is comfortable in no new complaints Vital signs stable, Ambulatory and tolerating oral nutrition Patient strongly advised to follow neurology, ENT for further evaluation and management of dizziness/vertigo Strictly advised not to drive or operate heavy machinery until cleared by primary care physician, verbalized understanding Patient is hemodynamically and clinically stable for discharge Discharge diagnosis; --Dizziness/vertigo; fall precautions --Hypertension; --Mild ethmoidal sinusitis on CT head; --Morbid obesity; BMI 49.4; and swelling weight reduction Disposition: DC-01 TO HOME OR SELFCARE Time spent for discharge: 33 min Core Measure Documentation - Palliative Care Palliative Care/ Comfort Measures: Not Applicable - Core Measures Any of the following diagnoses?: none Exam - Constitutional Vitals: Temp Pulse Resp BP Pulse Ox 97.4 F L 82 18 120/70 98 02/04/18 07:50 02/04/18 10:41 02/04/18 07:50 02/04/18 10:41 02/04/18 10:00 General appearance: Present: no acute distress, obese - EENT Eyes: Present: PERRL, EOM intact - Neck Neck: Present: supple, normal ROM - Respiratory Respiratory effort: normal Respiratory: negative: rales, rhonchi, wheezing - Cardiovascular Rhythm: regular Heart Sounds: Present: S1 & S2 - Extremities Extremities: no ischemia, No edema Peripheral Pulses: within normal limits - Abdominal General gastrointestinal: Present: soft, non-tender, non-distended, normal bowel sounds - Integumentary Integumentary: Present: clear, warm - Musculoskeletal Musculoskeletal: strength equal bilaterally - Psychiatric Psychiatric: appropriate mood/affect, cooperative - Neurologic Neurologic: CNII-XII intact, moves all extremities Plan Activity: advance as tolerated, no driving until cleared by PCP, fall precautions Diet: low salt Additional Instructions: Advice exercise as tolerated and weight reduction. Fall precautions Follow up with: PRIMARY CAREMD [Primary Care Provider] - 3-5 Days BILL CHACON MD [Staff Physician] - 7 Days DEBO CORONADO MD [Staff Physician] - 7 Days Prescriptions: Amoxicillin/K Clav Tab [Augmentin 875MG TAB] 1 each PO Q12HR #14 tablet Meclizine [Antivert] 25 mg PO Q8H PRN #30 tablet PRN Reason: Vertigo Metoprolol [Lopressor TAB] 12.5 mg PO BID #60 tablet
[2018-02-04 16:49] VITALS: BP 132/84
== END 2018-02-04 16:00 | disposition home or self-care (01) | DRG 149 ==
LOC: EDBD → ED 18:21 → 4A 02-02 03:13
PROVIDERS: ADMIT Internal Medicine; ATTEND Internal Medicine
DX: R42 Dizziness and giddiness (principal); Z68.42 Body mass index [BMI] 45.0-49.9, adult; R55 Syncope and collapse; I10 Essential (primary) hypertension; R41.3 Other amnesia; M62.81 Muscle weakness (generalized); J32.2 Chronic ethmoidal sinusitis; E66.01 Morbid (severe) obesity due to excess calories; Z88.2 Allergy status to sulfonamides; Z90.49 Acquired absence of other specified parts of digestive tract; Z83.3 Family history of diabetes mellitus; Z82.49 Family history of ischemic heart disease and other diseases of the circulatory system
CPT/HCPCS: 36415; 70450; 70496; 70498; 70551; 71045; 80048; 80061; 80307; 81001; 82085; 82140; 82550; 82553; 82607; 82747; 83519; 84425; 84439; 84443; 84484; 85025; 85610; 85730; 86256; 93005; 93010; 93306; J1650; J7030; Q9967

== ENCOUNTER 2018-05-22 18:44 | Emergency (ER) | payer SELFPAY ==
[2018-05-22] MEDS ORDERED: ASPIRIN PO ONE (19:30)
[2018-05-22 20:10] LABS: Basophils % (Auto) 0.5 % (0.0-1.8); Eosinophils # (Auto) 0.1 K/mm3 (0.0-0.4); Eosinophils % (Auto) 1.8 % (0.0-4.3); Hemoglobin 12.8 gm/dl (10.1-14.3); Lymphocytes # (Auto) 1.2 K/mm3 (1.2-5.4); Lymphocytes % (Auto) 22.5 % (13.4-35.0); Mean Corpuscular HGB Conc 34 % (30-34); Mean Corpuscular Hemoglobin 31 pg (28-32); Mean Corpuscular Volume 92 fl (79-97); Monocytes # (Auto) 0.4 K/mm3 (0.0-0.8); Monocytes % (Auto) 7.1 % (0.0-7.3); Platelet Count 222 K/mm3 (140-440); Red Blood Count 4.13 M/mm3 (3.65-5.03); Red Cell Distribution Width 13.8 % (13.2-15.2)
[2018-05-22 20:47] LABS: BUN/Creatinine Ratio 11; Blood Urea Nitrogen 10 mg/dL (7-17); Calcium 8.6 mg/dL (8.4-10.2); Hemolysis Index 21
--- NOTE | 2018-05-22 21:03 | Emergency Department Report ---
ED Dizziness HPI - General Chief Complaint: Dizziness Stated Complaint: SYNCOPY Time Seen by Provider: 05/22/18 20:32 Source: patient, EMS Mode of arrival: Stretcher Limitations: No Limitations - History of Present Illness Initial Comments: Patient is 63 years old female with a history of hypertension. Patient presented to the ER complaining of vertigo started this morning. Patient stated that she had history of vertigo and dizziness. Patient was admitted here in January and she had a full workup and all came back negative. Patient stated that her symptoms is similar to what she used to have except for the sweating that happened with it. Patient denied any chest pain or shortness of breath. She also denied any nausea or vomiting. Patient denied any weakness, numbness or tingling sensation. No bowel or bladder incontinence. MD Complaint: dizziness Timing: sudden onset Description: sense of movement, "room spinning" History of Same: Yes History of Trauma: No Severity: moderate Improves With: remaining still Worsens With: position Associated Symptoms: denies other symptoms - Related Data Home Medications Medication Instructions Recorded Confirmed Last Taken hydroCHLOROthiazide [HCTZ] 25 mg PO QDAY 02/02/18 02/02/18 Unknown Previous Rx's Medication Instructions Recorded Last Taken Type Amoxicillin/K Clav Tab [Augmentin 1 each PO Q12HR #14 tablet 02/04/18 Unknown Rx 875MG TAB] Meclizine [Antivert] 25 mg PO Q8H PRN #30 tablet 02/04/18 Unknown Rx Metoprolol [Lopressor TAB] 12.5 mg PO BID #60 tablet 02/04/18 Unknown Rx Allergies Allergy/AdvReac Type Severity Reaction Status Date / Time Sulfa (Sulfonamide Allergy Hives Verified 02/01/18 19:19 Antibiotics) ED Review of Systems ROS: Stated complaint: SYNCOPY Other details as noted in HPI Comment: All other systems reviewed and negative Constitutional: denies: chills, fever Respiratory: denies: cough, orthopnea, shortness of breath, SOB with exertion, SOB at rest, wheezing Cardiovascular: denies: chest pain, palpitations, dyspnea on exertion Gastrointestinal: denies: abdominal pain, nausea, vomiting, diarrhea, constipation, hematemesis, melena, hematochezia Neurological: vertigo. denies: headache, weakness, numbness, paresthesias, confusion, abnormal gait ED Past Medical Hx - Past Medical History Previous Medical History?: Yes Hx Hypertension: Yes Hx Congestive Heart Failure: No Hx Diabetes: No Hx Asthma: No Hx COPD: No - Surgical History Past Surgical History?: Yes Hx Appendectomy: Yes (1971) Additional Surgical History: , Incarciated hernia 2016 - Social History Smoking Status: Never Smoker Substance Use Type: None - Medications Home Medications: Home Medications Medication Instructions Recorded Confirmed Last Taken Type hydroCHLOROthiazide [HCTZ] 25 mg PO QDAY 02/02/18 02/02/18 Unknown History Amoxicillin/K Clav Tab [Augmentin 1 each PO Q12HR #14 tablet 02/04/18 Unknown Rx 875MG TAB] Meclizine [Antivert] 25 mg PO Q8H PRN #30 tablet 02/04/18 Unknown Rx Metoprolol [Lopressor TAB] 12.5 mg PO BID #60 tablet 02/04/18 Unknown Rx ED Physical Exam - General Limitations: No Limitations General appearance: alert, in no apparent distress, anxious - Head Head exam: Present: atraumatic, normocephalic, normal inspection - Eye Eye exam: Present: normal appearance, PERRL - ENT ENT exam: Present: normal exam, normal orophraynx, mucous membranes moist - Neck Neck exam: Present: normal inspection, full ROM. Absent: tenderness, meningismus, lymphadenopathy, thyromegaly - Respiratory Respiratory exam: Present: normal lung sounds bilaterally. Absent: respiratory distress, wheezes, rales, rhonchi, stridor, chest wall tenderness, accessory muscle use, decreased breath sounds, prolonged expiratory - Cardiovascular Cardiovascular Exam: Present: regular rate, normal rhythm, normal heart sounds - GI/Abdominal GI/Abdominal exam: Present: soft, normal bowel sounds. Absent: distended, tenderness, guarding, rebound, rigid, organomegaly, mass, bruit, pulsatile mass , hernia - Extremities Exam Extremities exam: Present: normal inspection, full ROM, normal capillary refill. Absent: pedal edema, calf tenderness - Back Exam Back exam: Present: normal inspection, full ROM. Absent: tenderness, CVA tenderness (R), CVA tenderness (L), muscle spasm, paraspinal tenderness, vertebral tenderness - Neurological Exam Neurological exam: Present: alert, oriented X3, CN II-XII intact, normal gait, reflexes normal - Skin Skin exam: Present: warm, intact, normal color ED Course Vital Signs 05/22/18 05/22/18 05/22/18 19:30 19:46 20:00 Pulse Rate 62 70 70 Respiratory 13 11 L 12 Rate Blood Pressure O2 Sat by Pulse Oximetry 05/22/18 05/22/18 05/22/18 20:15 20:31 20:45 Pulse Rate 66 61 69 Respiratory 14 16 19 Rate Blood Pressure 154/86 154/86 O2 Sat by Pulse 97 97 96 Oximetry 05/22/18 05/22/18 05/22/18 21:00 21:09 21:15 Pulse Rate 60 54 L 73 Respiratory 20 12 16 Rate Blood Pressure 159/87 159/87 159/87 O2 Sat by Pulse 96 97 95 Oximetry 05/22/18 05/22/18 05/22/18 21:18 21:31 21:43 Pulse Rate 80 81 97 H Respiratory 17 14 19 Rate Blood Pressure 159/87 159/87 159/87 O2 Sat by Pulse 95 98 98 Oximetry 05/22/18 05/22/18 05/22/18 21:45 21:57 22:01 Pulse Rate 102 H 98 H Respiratory 16 16 13 Rate Blood Pressure 159/87 142/71 O2 Sat by Pulse 99 100 96 Oximetry 05/22/18 05/22/18 05/22/18 22:15 22:31 22:45 Pulse Rate 100 H 87 78 Respiratory 12 13 12 Rate Blood Pressure 142/71 142/71 142/71 O2 Sat by Pulse 95 94 96 Oximetry 05/22/18 05/22/18 05/22/18 23:00 23:15 23:31 Pulse Rate 91 H 80 79 Respiratory 15 15 16 Rate Blood Pressure 145/74 145/74 145/74 O2 Sat by Pulse 98 99 99 Oximetry 05/22/18 05/23/18 05/23/18 23:45 00:01 00:15 Pulse Rate 115 H 95 H 79 Respiratory 33 H 19 19 Rate Blood Pressure 145/74 145/74 145/74 O2 Sat by Pulse 98 Oximetry 05/23/18 05/23/18 05/23/18 00:31 00:45 01:00 Pulse Rate 70 87 83 Respiratory 18 17 18 Rate Blood Pressure 145/74 145/74 148/80 O2 Sat by Pulse 99 Oximetry 05/23/18 05/23/18 05/23/18 01:15 01:31 01:45 Pulse Rate 87 83 73 Respiratory 15 16 21 Rate Blood Pressure 140/75 140/75 140/75 O2 Sat by Pulse 98 99 97 Oximetry ED Medical Decision Making - Lab Data Result diagrams: 05/22/18 20:01 05/22/18 20:01 - EKG Data -: EKG Interpreted by Ut EKG shows normal: sinus rhythm Rate: normal - EKG Data Interpretation: no acute changes - Radiology Data Radiology results: report reviewed Referring Physician: MARBELLA MENDOZA Patient Name: KEILA ELNNON Date of : 1955 Sex: Female Report Date: 2018-05-23 Report Status: Finalized Findings [facility] [address] [place] [address] Cat Scan Report Signed Patient: KEILA LENNON MR#: [id number] : 1955 Acct:[id number] Age/Sex: 63 / F ADM Date: 05/22/18 Loc: ED Attending Dr: Ordering Physician: MARBELLA MENDOZA Date of Service: 05/23/18 Procedure(s): CT angio chest Accession Number(s): [id number] cc: MARBELLA MENDOZA FINAL REPORT PROCEDURE: CT ANGIO CHEST TECHNIQUE: Computerized axial tomographic angiography of the chest and pulmonary arteries was performed after the IV injection of iodinated nonionic contrast. The image data was postprocessed using maximum intensity projection (MIP) and 2-dimensional multiplanar reformatted (MPR) techniques. The examination is specifically tailored to the evaluation of the pulmonary arteries per clinical request. HISTORY: Short of breath 786.09, chest pain 786.50, CHEST PAIN WITH SYNCOPE COMPARISON: No prior studies are available for comparison. FINDINGS: Heart and pericardium: Normal. Thoracic aorta: There is no thoracic aortic aneurysm or dissection.. Pulmonary vasculature: Normal. No pulmonary emboli. Lymph nodes: No enlarged thoracic lymph nodes. Lungs: There are no infiltrates, effusions or pneumothoraces.. Pleural space: No effusion, thickening, or pneumothorax. Musculoskeletal structures: No significant abnormality. Upper abdominal structures: There is a 6 millimeter stone in the midpole of the left kidney.. IMPRESSION: There is no pulmonary embolism. There is no thoracic aortic aneurysm or dissection.. Transcribed By: CO Dictated By: BHUPINDER ABDULLAHI MD Electronically Authenticated By: BHUPINDER ABDULLAHI MD Signed Date/Time: 05/23/18307 DD/ 7 TD/TT: 05/23/18307 - Medical Decision Making Ms Lennon is 63 years old female with a history of hypertension. Patient presented to the ER complaining of vertigo started this morning. Patient stated that she had history of vertigo and dizziness. Patient was admitted here in January and she had a full workup and all came back negative. Patient stated that her symptoms is similar to what she used to have except for the sweating that happened with it. Patient denied any chest pain or shortness of breath. She also denied any nausea or vomiting. Patient denied any weakness, numbness or tingling sensation. No bowel or bladder incontinence. Patient did not have any dizziness or vertigo in the ER. EKG is negative for acute finding. Patient had a CTA chest which is negative for pulmonary embolism. The patient advised to follow primary care physician in the next 2-3 days and to return to the ER if her symptoms are not improving. Critical care attestation.: If time is entered above; I have spent that time in minutes in the direct care of this critically ill patient, excluding procedure time. ED Disposition Clinical Impression: Dizziness, Vertigo Disposition: DC-01 TO HOME OR SELFCARE Is pt being admited?: No Condition: Stable Instructions: Dizziness (ED), Vertigo (ED) Referrals: PRIMARY CARE, [Primary Care Provider] - 3-5 Days
--- NOTE | 2018-05-23 03:08 | Cat Scan Report ---
FINAL REPORT PROCEDURE: CT ANGIO CHEST TECHNIQUE: Computerized axial tomographic angiography of the chest and pulmonary arteries was performed after the IV injection of iodinated nonionic contrast. The image data was postprocessed using maximum intensity projection (MIP) and 2-dimensional multiplanar reformatted (MPR) techniques. The examination is specifically tailored to the evaluation of the pulmonary arteries per clinical request. HISTORY: Short of breath 786.09, chest pain 786.50, CHEST PAIN WITH SYNCOPE COMPARISON: No prior studies are available for comparison. FINDINGS: Heart and pericardium: Normal. Thoracic aorta: There is no thoracic aortic aneurysm or dissection.. Pulmonary vasculature: Normal. No pulmonary emboli. Lymph nodes: No enlarged thoracic lymph nodes. Lungs: There are no infiltrates, effusions or pneumothoraces.. Pleural space: No effusion, thickening, or pneumothorax. Musculoskeletal structures: No significant abnormality. Upper abdominal structures: There is a 6 millimeter stone in the midpole of the left kidney.. IMPRESSION: There is no pulmonary embolism. There is no thoracic aortic aneurysm or dissection..
[2018-05-23 05:13] VITALS: BP 132/76
== END 2018-05-23 05:22 | disposition home or self-care (01) ==
LOC: ED 18:44
DX: R42 Dizziness and giddiness (principal); I10 Essential (primary) hypertension; Z90.49 Acquired absence of other specified parts of digestive tract; Z88.1 Allergy status to other antibiotic agents
CPT/HCPCS: 36415; 71275; 80048; 84484; 85025; 85379; 93005; 93010; 99285; Q9967